=== PATIENT | female | born 1980 | race Asian ===

== ENCOUNTER 2018-10-08 20:54 | Emergency (ER) | payer OTHER ==
[~2018-10-08] VITALS: Ht 175.3 cm; Wt 55.7 kg
[~2018-10-08 20:54] MED LIST: HYDR-4011 PO; NAPR-985 PO; ONDA4TAB14 PO; TAMS-14 PO
[2018-10-08 21:03] VITALS: Ht 175.3 cm; Wt 55.7 kg
[2018-10-09] MEDS ORDERED: ONDANSETRON (ODT) 4 MG TAB ODT STA (00:15)
[2018-10-09] MEDS ORDERED: HYDROCODONE/APAP (5/325) TAB PO ONE (00:30)
[2018-10-09 00:41] VITALS: BP 106/69; PULSE 70; RESP 16
== END 2018-10-09 00:46 | disposition home or self-care (01) ==
LOC: FTE 20:54
DX: N20.0 Calculus of kidney (principal); R10.2 Pelvic and perineal pain
CPT/HCPCS: 36415; 74176; 76705; 80053; 81001; 81025; 83690; 85025; Z7502; Z7610

== ENCOUNTER 2018-10-31 08:12 | Emergency (ER) | payer OTHER ==
[~2018-10-31] VITALS: Wt 55.0 kg
[~2018-10-31 08:12] MED LIST changes: +DIAZ5TAB PO; +PRED20TA PO
[2018-10-31] MEDS ORDERED: KETOROLAC 30 MG INJ IM STA (09:41)
[2018-10-31] MEDS ORDERED: DIAZEPAM 5 MG TAB PO ONE (10:00)
[2018-10-31] MEDS ORDERED: METHYLPREDNISOLONE 125 MG INJ IM ONE (10:00)
[2018-10-31 12:45] VITALS: BP 126/78; PULSE 78; RESP 20
== END 2018-10-31 12:50 | disposition home or self-care (01) ==
LOC: FTE 08:12
DX: M25.422 Effusion, left elbow (principal); M62.838 Other muscle spasm; M79.672 Pain in left foot; M79.641 Pain in right hand; M79.644 Pain in right finger(s)
CPT/HCPCS: 29105; 72040; 73080; 73140; 73630; 81025; 96372; J1885; J2930; Z7502; Z7610